=== PATIENT | female | born 1930 | race Caucasian/White ===

== ENCOUNTER → 2016-10-30 17:46 | Outpatient (CLI) | payer MEDICARE, MEDICAID ==
[2015-12-20 10:39] VITALS: BMI 27.0
[~2016-10-30 17:46] MED LIST: BAYER CHEWABLE81 MG PO; COZAAR100 MG PO; FLAGYL 500500 MG/100 PO; FLAGYL500 MG PO; GABAPENTIN100 MG PO; GEMFIBROZIL600 MG PO; GLUCOPHAGE500 MG PO; LANTUS INSULIN10 ML SC; LEVAQUIN500 MG PO; LEVOXYL50 MCG PO; Levaquin PREMIX IV; PLAVIX75 MG PO; PRAVACHOL20 MG PO; PRILOSEC20 MG PO; PROTONIX40 MG PO; SYNTHROID75 MCG PO; ZIAC 5-6.25 MG1 TAB PO
== END | disposition home or self-care (01) ==
LOC: D.MAMMO 10:00
DX: Z12.31 Encounter for screening mammogram for malignant neoplasm of breast (principal)

== ENCOUNTER 2016-11-28 07:51 | Outpatient (CLI) | payer MEDICARE, MEDICAID ==
[~2016-11-28] VITALS: Ht 157.5 cm; Wt 64.1 kg
--- NOTE | ~2016-11-28 | HEMODYNAMI ---
PATIENT:MARIA FERNANDA VYAS MEDICAL RECORD: [id number] : 34 LOCATION:[facility] ADMISSION DATE: 11/28/16 Generatedon:11/28/201611:02 Patient name: MARIA FERNANDA VYAS Patient #: [id number] SSN: : 1930 Date of study: 11/28/2016 Page: Of Hemodynamic Procedure Report Patient Data Patient Demographics Procedure consent was obtained First Name: MARIA FERNANDA Gender: Female Last Name: ASAEL : 1930 [facility] Initial: L Age: 86 year(s) Patient #: [id number] Race: Additional ID: [id number] Contact details [address]: [address] [place] [address] State: [place] City: [place] Zip code: [address] Past Medical History Allergies Allergen Reaction Date Comments Reported Codeine 11/28/2016 Other allergy 11/28/2016 Novacaine Admission Admission Data Admission Date: 11/28/2016 Admission Time: 7:51 Admit Source: Other Insurance Payor: Medicare, Medicaid Height (in.): 62 BSA: 1.68 (m2) Height (cm.): 157.48 BMI: 26.89 (kg/m2) Weight (lbs.): 147 Weight (kg.): 66.68 Lab Results Lab Result Date: 11/28/2016 Lab Result Time: 8:39 Biochemistry Name Units Result Min Max BUN mg/dl 39 --(----)-* 7 18 Creatinine mg/dl 1.5 --(----)-* 0.6 1.3 CBC Name Units Result Min Max Hemoglobin g/dl 12 *-(----)-- 13.5 17.5 Procedure Procedure Types Cath Procedure Miscellaneous Procedures Moderate Sedation up to 30 minutes Peripheral Cath Diagnostic Procedure Cath Peripheral Nkcvx-Qyujnmh-Emm-Off Peripheral vascular Intervention Stent Stent-Fem/Popw/plasty Procedure Description Procedure Date Procedure Date: 11/28/2016 Procedure Start Time: 10:39 Procedure End Time: 11:01 Procedure Staff Name Function Tom Randhawa MD Performing Physician Beth Spain RT Scrub Romi Pool RN Nurse Tay Campbell RT Monitor Levar Rogers RN Percussion Instructor Procedure Data Cath Procedure Fluoroscopy Diagnostic fluoroscopy Total fluoroscopy Time: 4.6 time: 4.6 min min Diagnostic fluoroscopy Total fluoroscopy dose: 100 dose: 100 mGy mGy Contrast Material Contrast Material Type Amount (ml) Isovue 300 81 Entry Location Entry Primary Successful Side Size Upsize 1 Upsize Entry Closure Olivarez ccessful Closure Location (Fr) (Fr) 2 (Fr) Remarks Device Remarks Femoral Right 5 Fr 6 Fr 6 Fr Exoseal artery Mid-Length Short Estimated blood loss: 10 ml Diagnostic catheters Device Type Used For End Catheter Placement Cordis Tempo 5Fr UF Procedure catheter Procedure Complications No complications Procedure Medications Medication Administration Route Dosage Oxygen NC 2 l/min Lidocaine 2% added to field 20 Heparin Flush Bag added to field 2 bags (1000units/500ml NS) 0.9% NaCl I.V. 100 ml/hr Versed I.V. 1 mg Fentanyl I.V. 50 mcg Versed I.V. 1 mg Fentanyl I.V. 50 mcg Heparin Bolus I.V. 4000 units Integrilin (Bolus I.V. 5.6 ml 2mg/ml) Fentanyl I.V. 25 mcg Plavix P.O. 600 mg Hemodynamics Rest BSA: 1.68 (m2) HGB: 12 (g/dl) O2 Consumption: Estimated: 142.55 (ml/min) O2 Cons umption indexed: Estimated:84.85 (ml/min/m) Heart Rate: 59 (bpm) Snapshots Pre Cath Intra NCS Post Cath Vital Signs Time Heart Resp SPO2 etCO2 [id number] NIBP (mmHg) Rhythm Pain Sedation Rate (ipm) (%) (mmHg) (mmHg) Status Level (bpm) 10:14:11 59 15 95 0 0 188/69(145) NSR 0 (11) 10(A) , No pain 10:18:40 59 16 96 0 0 177/76(145) NSR 0 (11) 10(A) , No pain 10:23:12 58 14 97 0 0 163/61(128) NSR 0 (11) 10(A) , No pain 10:27:38 59 15 95 0 0 139/59(107) NSR 0 (11) 10(A) , No pain 10:31:57 57 15 96 0 0 128/57(102) NSR 0 (11) 10(A) , No pain 10:36:12 59 14 96 0 0 127/56(98) NSR 0 (11) 9(A) , No pain 10:40:26 59 15 94 0 0 117/56(92) NSR 0 (11) 9(A) , No pain 10:44:39 59 14 96 0 0 126/50(97) NSR 0 (11) 9(A) , No pain 10:48:53 61 15 94 0 0 124/55(97) NSR 0 (11) 9(A) , No pain 10:53:04 59 15 98 0 0 144/61(125) NSR 0 (11) 10(A) , No pain 10:57:22 59 11 97 0 0 140/64(112) NSR 0 (11) 10(A) , No pain 11:01:32 98 0 0 No Cuff NSR 0 (11) 10(A) , No pain Medications Time Medication Route Dose Verified Delivered Reason Notes Effectiveness by by 10:17:27 Oxygen NC 2 Tom Buffie used for l/min Edis Pool RN procedure 10:17:59 Lidocaine 2% added 20ml Tom Tom for local to vial Edis Randhawa MD anesthetic field 10:18:06 Heparin Flush added 2 Tom Tom used for Bag to bags Edis Randhawa MD procedure (1000units/500ml field NS) 10:18:16 0.9% NaCl I.V. 100 Tom Buffie Per physician ml/hr Edis Pool RN 10:33:16 Versed I.V. 1 mg Tom Buffie for sedation Edis Pool RN 10:33:39 Fentanyl I.V. 50 Tom Buffie for sedation mcg Edis Pool RN 10:37:50 Versed I.V. 1 mg Tom Buffie for sedation Edis Pool RN 10:37:54 Fentanyl I.V. 50 Tom Buffie for sedation mcg Edis Pool RN 10:43:51 Heparin Bolus I.V. 4000 Tom Buffie for verifi ed units Edis Pool RN anticoagulation with dr randhawa 10:46:43 Integrilin I.V. 5.6 Tom Buffie for wasted (Bolus 2mg/ml) ml Edis Pool RN antiplatelet 4.4 ml therapy of vial 10:50:28 Fentanyl I.V. 25 Tom Llanos for sedation mcg Edis Pool RN 10:56:12 Plavix P.O. 600 Tom Llanos for mg Edis Pool RN antiplatelet therapy Procedure Log Time Note 10:01:41 Levar Rogers RN sent for patient. Start room use. 10:01:43 Time tracking: Regular hours 10:01:47 Plan of Care:Hemodynamics will remain stable., Cardiac rhythm will remain stable., Comfort level will be maintained., Respiratory function will remain adequate., Patient/ family verbilizes understanding of procedure., Procedure tolerated without complication., Recovers from procedure without complications.. 10:05:36 Patient received from Pre/Post Procedure Room to CCL 1 Alert and oriented. Tansferred to table in Supine position. 10:05:37 Warm blankets applied, and roly hugger turned on for patient comfort. 10:05:38 Correct patient and procedure confirmed by team. 10:05:39 Signed procedure consent form obtained from patient. 10:05:40 ECG and BP/O2 sat monitors applied to patient. 10:05:41 Full Disclosure recording started 10:11:49 Vital chart was started 10:11:53 Rhythm: 1st degree heart block 10:12:05 H&P Date Dictated: 11/18/2016 Within 30 days and on chart., H&P Addendum completed by physician on day of procedure. (MUST COMPLETE FOR ALL OUTPATIENTS). 10:12:17 Pre-procedure instructions explained to patient. 10:12:18 Pre-op teaching completed and patient verbalized understanding. 10:12:21 Family in waiting room. 10:12:23 Patient NPO since Midnight. 10:12:30 Patient allergic to Codeine 10:12:39 Patient allergic to Other allergyNovacaine 10:12:42 Is the patient allergic to Iodine/contrast media? No. 10:12:47 Is patient on blood thinner?No 10:12:49 Patient diabetic? No. 10:12:53 Previous problem with sedation/anesthesia? No ? 10:12:55 Snore? No 10:13:01 Sleep apnea? No 10:13:02 Deviated septum? No 10:13:03 Opens mouth fully? Yes 10:13:04 Sticks out tongue? Yes 10:13:05 Airway obstruction? No ? 10:13:07 Dentures? No ? 10:13:12 Pre procedure: right dorsailis pedis pulse 1+ Palpable, but thready & weak; easily obliterated 10:13:19 Pre procedure: left dorsailis pedis pulse 0-Absent 10:13:23 Patient pain scale 0/10 ?. 10:13:30 IV patent on arrival in left hand with 0.9% NaCl at [facility]. 10:13:38 Lab results completed and on chart. 10:13:44 Bilateral groins area was prepped with chlora-prep and draped in sterile fashion 10:13:45 Alarms reviewed by R. N. 10:13:45 Sharps counted by scrub and verified by R.N. 10:14:03 Medline Cath Pack opened to sterile field. 10:14:03 Acist Syringe opened to sterile field. 10:14:04 Terumo 5Fr [place] Sheath opened to sterile field. 10:14:05 St Jimmy 260cm J .035 wire opened to sterile field. 10:14:06 Acist Hand Control opened to sterile field. 10:14:06 Acist Manifold opened to sterile field. 10:14:08 Tegaderm 4 x 4 opened to sterile field. 10:17:27 Oxygen 2 l/min NC was given by Romi Pool RN; used for procedure; 10:17:59 Lidocaine 2% 20ml vial added to field was given by Tom Randhawa MD; for local anesthetic; 10:18:06 Heparin Flush Bag (1000units/500ml NS) 2 bags added to field was given by Tom Randhawa MD; used for procedure; 10:18:16 0.9% NaCl 100 ml/hr I.V. was given by Romi Pool RN; Per physician; 10:23:20 Lab Result : BUN 39 mg/dl 10:23:20 Lab Result : Creatinine 1.5 mg/dl 10:23:20 Lab Result : Hemoglobin 12 g/dl 10:23:30 Acist Hand Control opened to sterile field. 10:23:31 Acist Syringe opened to sterile field. 10:23:31 Bag Decanter opened to sterile field. 10:23:32 Terumo 5Fr [place] Sheath opened to sterile field. 10:23:32 St Jimmy 260cm J .035 wire opened to sterile field. 10:25:09 Baseline sample Acquired. 10::29 Patient Height : 62 inches 10:26:39 Insurance Payor : Medicare, Medicaid 10:32:09 Zero performed for pressure channel P1 10:32:29 Admit Source: Other 10:32:36 If diabetic: On Metformin? No 10::53 --------ALL STOP TIME OUT------ 10::53 Final Timeout: patient, procedure, and site verified with staff and physician. All members of the team are in agreement. 10:32:55 Bilateral groins site verified by team. 10:32:57 Physical assessment completed. ASA score P 2 - A patient with mild systemic disease as per Tom Randhawa MD. 10:33:04 Sedation plan: IV Moderate Sedation Versed, Fentanyl 10:33:16 Versed 1 mg I.V. was given by Romi Pool RN; for sedation; 10:33:39 Fentanyl 50 mcg I.V. was given by Romi Pool RN; for sedation; 10:37:41 Patient Weight : 147 lbs 10:37:50 Versed 1 mg I.V. was given by Romi Pool RN; for sedation; 10:37:54 Fentanyl 50 mcg I.V. was given by Romi Pool RN; for sedation; 10:38:58 Procedure started. 10:39:03 Local anesthetic to right femoral artery with Lidocaine 2% by Tom Randhawa MD.INITIAL ACCESS ONLY 10:40:12 A 5 Fr sheath was inserted into the Right Femoral artery 10:40:34 A Chiasma 5Fr UF catheter was advanced over the wire and used for Procedure. 10:40:37 Abdominal angiogram w/ runoff was performed. 10:40:51 Left renal angiography performed. 10:41:06 Right renal angiography performed. 10:42:22 Terumo ANGLE 260cm glide wire opened to sterile field. 10:42:23 Merit BasixCompak Inflation Kit opened to sterile field. 10:43:44 Terumo TORQUE DEVICE PLASTIC .038 opened to sterile field. 10:43:45 Terumo 6Fr [place] Destination Sheath opened to sterile field. 10:43:46 Terumo 6Fr [place] Sheath opened to sterile field. 10:43:51 Heparin Bolus 4000 units I.V. was given by Romi Pool RN; for anticoagulation; verified with dr randhawa 10:43:57 [place] Sci Choice PT Extra Support J 300cm .014 gu opened to sterile field. 10:44:11 Catheter removed. 10:44:20 Sheath upsized to a 6 Fr Mid-Length. 10:44:35 glide wire advanced around horn. 10:45:43 glide wire removed 10:45:59 choice pt extra support wire advanced. 10:46:43 Integrilin (Bolus 2mg/ml) 5.6 ml I.V. was given by Romi Pool RN; for antiplatelet therapy; wasted 4.4 ml of vial 10:47:49 Inflation number: 1 A Saber 6.0 X 200 X 150 balloon was prepped and advanced across the Mid Superficial Femoral, Left, then inflated to 11 KYALA for 0:10 (min:sec). 10:48:49 Multiple inflations made at 11 Atms. 10:49:57 Balloon removed over the wire. 10:50:28 Fentanyl 25 mcg I.V. was given by Romi Pool RN; for sedation; 10:51:35 Cordis SMART 6 X 150 X 120 stent was deployed across Mid Superficial Femoral, Left . 10:51:38 Stent catheter was removed intact over wire. 10:52:38 Cordis 6Fr Exoseal opened to sterile field. 10:52:46 Wire removed. 10:53:00 Sheath upsized to a 6 Fr Short. 10:53:14 Sheath removed intact; hemostasis achieved with Exoseal to the Right Femoral artery. 10:53:16 Procedure ended.(Physican Out) 10:56:12 Plavix 600 mg P.O. was given by Romi Pool RN; for antiplatelet therapy; 10:56:54 Fluoroscopy time 04.60 minutes. 10:56:58 Fluoroscopy dose: 100 mGy 10:56:58 Flurop Dose total: 100 10:57:03 Contrast amount:Isovue 300 81ml. 10:57:04 Sharps counted by scrub and verified by R.N. 10:57:05 Insertion/operative site no bleeding no hematoma. 10:57:08 Post-op/insertion site Right Femoral artery dressed using a 4 x 4 and Tegaderm. 10:57:14 Post right femoral artery:stable, soft, clean and dry 10:57:15 Post Procedure Pulses reassessed and unchanged 10:57:18 Post-procedure physical assessment completed. ASA score P 2 - A patient with mild systemic disease as per Tom Randhawa MD. 10:57:20 Post procedure rhythm: unchanged. 10:57:23 Estimated blood loss: 10 ml 10:57:24 Post procedure instruction explained to patient.Patient verbalizes understanding. 10:57:25 Post procedure instruction explained to patient.Patient verbalizes understanding. 10:57:25 Patient needs reinforcement of post procedure teaching. 10:57:58 Procedure type changed to Cath procedure, Miscellaneous Procedures, Moderate Sedation up to 30 minutes, Peripheral Cath Diagnostic Procedure, Cath Peripheral, Rwkki-Unxtkid-Kpq-Off, Peripheral vascular Intervention, Stent, Stent-Fem/Popw/plasty 11:01:08 Procedure and supply charges have been captured, reviewed, submitted and are correct. 11:01:11 Procedure Complication : No complications 11:01:12 Vital chart was stopped 11:01:13 See physician's report for complete and final results. 11:01:14 Report given to Pre/Post Procedure Room. 11:01:16 Patient transfered to Pre/Post Procedure Room with Stretcher. 11:01:18 Procedure ended. 11:01:18 Full Disclosure recording stopped 11:01:28 ACC-PCI Only Patient was given prescriptions, or instructed by Tom Randhawa MD to start/continue the following medications upon discharge: Plavix 11:01:30 End room use (Document Last) Intervention Summary Intervention Notes Time ActionType Lesion and Equipment Action# Pressure Duration Attributes Used 10:47:49 Inflate Mid Saber 6.0 1 11 00:10 balloon Superficial X 200 X Femoral, 150 Left balloon 10:51:35 Deploy self Mid Cordis 1 expanding Superficial SMART 6 X stent Femoral, 150 X 120 Left stent Device Usage Item Name Manufacture Quantity Catalog Number Hospital Part Current Minim al Lot# / Charge Number Stock Stock Serial# Code [facility] 1 [id number] 87780 [id number] 5 Cath Pack Health Acist Acist 2 88222 460561 360943 379732 20 [employer] Inc Terumo 5Fr Terumo 2 [id number] 670156 303362 895706 [address] Jimmy 2 990603 414492 724612 629054 30 260cm J .035 wire Acist Hand Acist 2 17493 595599 024184 293791 5 Control Medical Systems Inc Acist Acist 1 04082 020792 379917 921487 5 Manifold Medical [employer] Inc Tegaderm 4 3M 1 1626W 444899 028487 452959 5 x 4 Bag Microtek 1 2002S 172323 49684 047647 5 Decanter [employer] Inc. Cordis Cardinal 1 [id number] 840288 115656 346570 10 Tempo 5Fr Health UF catheter Terumo Terumo 1 [id number] 312930 213365 445112 5 ANGLE 260cm glide wire Merit Merit 1 AS8619 684328 300858 661578 15 BasixCompak Medical Inflation Kit Terumo [place] 1 TD01 850844 356608 880947 5 TORQUE Scientific DEVICE PLASTIC .038 Terumo 6Fr Terumo 1 RSR01 234595 40647 162236 5 [place] Destination Sheath Terumo 6Fr Terumo 1 [id number] 308848 751724 150191 40 [place] Sheath [place] Sci [place] 1 [id number] 957832 501847 950517 5 Choice PT Scientific Extra Support J 300cm .014 gu Saber 6.0 X Cardinal 1 [id number] 209627 745993 5 200 X 150 Health balloon Cordis Cardinal 1 [id number] 645426 181317 558398 0 [id number] SMART 6 X Health 150 X 120 stent Cordis 6Fr Cardinal 1 EX600 621230 863280 987871 10 [facility] Health Signature Audit [place] Stage Time Signature Unsigned Intra-Procedure 11/28/2016 Tay Campbell 11:02:46 AM RT(R) Signatures Monitor : Tay Campbell RT Signature : Date : Time : [facility] [address] [place] [address]
[~2016-11-28 07:51] MED LIST changes: -PLAVIX75 MG PO
[2016-11-28 08:22] VITALS: BP 148/53; Ht 157.5 cm; Wt 64.1 kg
[2016-11-28 08:44] LABS: BASOPHILS 0.8 % (0.0-2.0); EOSINOPHILS 4.8 % (0-7); HEMATOCRIT 36.9 % (36.0-48.0); IMMATURE GRANULOCYTES 0.2 % (0-5); LYMPHOCYTES 28.8 % (15-50); MCH 28.8 pg (26.0-34.0); MCHC 32.5 g/dL (31.0-37.0); MCV 88.5 fL (80.0-100.0); MEAN PLATELET VOLUME 10.8 fL (7.4-10.4); MONOCYTES 9.8 % (2-11); NEUTROPHILS 55.6 % (40-80); PLATELET COUNT 193 10x3/uL (130-400); RBC 4.17 10x6/uL (4.00-5.40); RDW 13.8 % (11.5-14.5); WBC 6.6 10x3/uL (4.8-10.8)
[2016-11-28 08:48] LABS: ANION GAP 14.8 mmol/L (8-16); CALCIUM 10.3 mg/dL (8.5-10.1); CARBON DIOXIDE 27.5 mmol/L (21.0-32.0); CREATININE - SERUM 1.5 mg/dL (0.6-1.3); POTASSIUM - SERUM 4.3 mmol/L (3.5-5.1)
--- NOTE | 2016-11-28 11:20 | NUR ---
1120 RESTING QUIETLY WITH VSS NO DISTRESS NOTED. 6 FR EXOSEAL R/GROIN CDI NO BLEEDING NO HEMATOMA NOTED.
[2016-11-28] MEDS ORDERED: PLAVIX75 MG PO (11:42)
--- NOTE | 2016-11-28 12:00 | NUR ---
1200 6 FR EXOSEAL R/GROIN CDI NO BLEEDING NO HEMATOMA NOTED. VSS WITH CHEST PAIN DENIED
--- NOTE | 2016-11-28 12:23 | NUR ---
6 FR EXOSEAL R/GROIN CDI NO BLEEDING NO HEMATOMA NOTED VSS WILL MONITOR
--- NOTE | 2016-12-01 10:08 | OP ---
PATIENT NAME: MARIA FERNANDA VYAS MEDICAL RECORD: [id number] :34 LOCATION:D.CAT ADMISSION DATE: SURGEON: JESUS GARCÍA MD DATE OF OPERATION: 11/28/2016 PROCEDURES: 1. Stent placement SFA, left. 2. MANUFACTURING ENGINEER ASSEMBLY SFA, left. 3. Aortofemoral runoff. 4. Abdominal aortography. INDICATION: Claudication, peripheral vascular disease, nonhealing ulcer, left leg. PROCEDURE IN DETAIL: After informed consent was obtained and after a detailed explanation of risks, benefits as well as alternative therapies, the patient elected to proceed with angiogram and angioplasty. The right femoral area was prepped and draped in normal sterile fashion. The right femoral artery was cannulated via modified Seldinger technique with placement of a 6-Urdu jztqez-xtx-etco sheath. All catheters exchanged through this sheath. FINDINGS: The abdominal aortography was performed. The catheter was pulled down for aortofemoral runoff. Abdominal aortography reveals no significant abdominal aortic disease, no renal artery stenosis. No dissection or aneurysm formation. RIGHT LEG: A. Iliac: The common internal and external iliacs have mild irregularities, but no flow-limiting stenosis. B. Femoral system: The common and deep femoral are widely patent. Superficial femoral has multiple areas of 80% and 90% stenosis. C. Popliteal and infrapopliteal vessels: The popliteal is widely patent. Anterior tibial is totally occluded, posterior tibial and peroneal give 2-vessel runoff to the foot, although diffusely diseased. LEFT LEG: A. Iliac: The common internal and external iliacs have moderate irregularities, but no flow-limiting stenosis. B. Femoral system: The common and deep femoral are widely patent. Superficial femoral has multiple areas of subtotal stenosis. C. Popliteal and infrapopliteal vessels: The popliteal is patent. Anterior tibial is totally occluded. Posterior tibial and peroneal give 3-vessel runoff to the foot, although diffusely diseased. MANUFACTURING ENGINEER ASSEMBLY STENT OF THE SUBTOTAL OCCLUSIONS OF THE LEFT SFA: The balloon used was a 6 x 200. This yielded suboptimal result with severe intimal dissection. Stenting was undertaken with a 6 x 150 SMART stent. Result was 0% residual stenosis. OVERALL IMPRESSION: Successful percutaneous transluminal angioplasty stent of the left superficial femoral artery going from 95% initial stenosis to 0% residual with pentecostal of brisk distal flow. TRANSINT:[id number] Voice Confirmation ID: [id number] DOCUMENT ID: [id number] OPERATIVE REPORT [id number] MARIA FERNANDA VYAS, JESUS RAMOS at 1008 CC: [id number] DICTATION DATE: 11/28/16 1057 MILK BOTTLER: 11/28/16 1839 DEP CLI 11/28/16 [place] [id number]
== END 2016-11-28 15:10 | disposition home or self-care (01) ==
LOC: D.CATH 07:51
PROVIDERS: Internal Medicine Interventional Cardiology
DX: I70.249 Atherosclerosis of native arteries of left leg with ulceration of unspecified site (principal); I70.212 Atherosclerosis of native arteries of extremities with intermittent claudication, left leg

== ENCOUNTER 2017-03-17 21:20 | Emergency (ER) | payer MEDICARE, MEDICAID ==
[2016-11-28 08:22] VITALS: BMI 25.8
[~2017-03-17 21:20] MED LIST changes: +PLAVIX75 MG PO
== END 2017-03-17 22:30 | disposition home or self-care (01) ==
LOC: D.ER 21:20
DX: K59.00 Constipation, unspecified (principal); I10 Essential (primary) hypertension; E83.42 Hypomagnesemia; E03.9 Hypothyroidism, unspecified

== ENCOUNTER 2017-03-25 19:17 | Inpatient (IN) | payer MEDICARE, MEDICAID ==
[~2017-03-25] VITALS: Ht 157.5 cm; Wt 55.9 kg
--- NOTE | ~2017-03-25 | OP ---
PATIENT NAME: MARIA FERNANDA VYAS MEDICAL RECORD: [id number] :34 LOCATION:D.M2 D.2106 ADMISSION DATE:03/25/17 SURGEON: JESUS GARCÍA MD OPERATION DATE: 03/30/17 PROCEDURES: 1. Stent placement superficial femoral artery right. 2. Stent placement popliteal right. 3. Percutaneous transluminal angioplasty superficial femoral artery right. 4. Percutaneous transluminal angioplasty popliteal right. 5. Unilateral extremity angiography. INDICATION: 1. Limb-threatening ischemia. 2. Nonhealing ulcer. 3. Osteomyelitis. PROCEDURE IN DETAIL: After informed consent was obtained and after detailed explanation of risks, benefits, as well as alternative therapies, the patient elected to proceed with angiogram. The left femoral area was prepped and draped in a normal sterile fashion. The left femoral artery was cannulated via modified Seldinger technique with placement of 6-Slovak sheath. All catheters exchanged through this sheath. FINDINGS: The right superficial femoral artery has an 80-90% stenosis in the proximal aspect. The popliteal has a 90+% stenosis. There is two vessel runoff to the foot through the peroneal and posterior tibial. HEAD REFRIGERATING ENGINEER STENT OF SUPERFICIAL FEMORAL ARTERY AND POPLITEAL: The balloon used was a 5.0 balloon. This yielded a suboptimal result with severe dissection in both territories. Stenting was undertaken 6 X 60 SMART stent in the popliteal, 6 X 40 SMART stent in the superficial femoral artery. The result was 0% residual stenosis. OVERALL IMPRESSION: Successful percutaneous transluminal angioplasty stent of the right lower extremity going from over 90% initial stenosis to 0% residual stenosis. JESUS GARCÍA MD CC: [id number] DICTATION DATE: 03/30/17 1400 SALES AND MARKETING REPRESENTATIVE: SELENA 03/31/17 1220 ADM IN [place] [id number] [place] [address]
--- NOTE | ~2017-03-25 | HEMODYNAMI ---
PATIENT:MARIA FERNANDA VYAS MEDICAL RECORD: [id number] : 34 [facility] [place] [id number] ADMISSION DATE: 03/25/17 Generatedon:03/30/201710:30 Patient name: MARIA FERNANDA VYAS Patient #: [id number] SSN: : [id number] Date of study: 03/30/2017 Page: Of Hemodynamic Procedure Report Patient Data Patient Demographics Procedure consent was obtained First Name: MARIA FERNANDA Gender: Female Last Name: ASAEL : 1930 [facility] Initial: L Age: 86 year(s) Patient #: [id number] Race: Additional ID: [id number] Contact details [address]: [address] [place] [address] State: [place] City: [place] Zip code: [address] Past Medical History Allergies Allergen Reaction Date Comments Reported Codeine 11/28/2016 Other allergy 11/28/2016 Novacaine Other allergy 03/30/2017 Procaine, Novocain, Codiene, TB Skin Test Admission Admission Data Admission Date: 03/25/2017 Admission Time: 19:17 Room #: D.2219 Height (in.): 62 BSA: 1.67 (m2) Height (cm.): 157.48 BMI: 26.52 (kg/m2) Weight (lbs.): 145 Weight (kg.): 65.77 Lab Results Lab Result Date: 03/30/2017 Lab Result Time: 4:05 Biochemistry Name Units Result Min Max BUN mg/dl 25 --(----)-* 7 18 Creatinine mg/dl 1.6 --(----)-* 0.6 1.3 CBC Name Units Result Min Max Hematocrit % 35.5 *-(----)-- 42 54 Hemoglobin g/dl 11.5 *-(----)-- 13.5 17.5 Procedure Procedure Types Cath Procedure Peripheral vascular Intervention Stent Stent-Fem/Popw/plasty Procedure Description Procedure Date Procedure Date: 03/30/2017 Procedure Start Time: 10:05 Procedure End Time: 10:30 Procedure Staff Name Function Tom Randhawa MD Performing Physician Beth pSain RT Scrub Trice Chu RN Nurse Tay Campbell RT Monitor Levar Rogers RN Drinking Water Technician Gagan Armstrong RT Drinking Water Technician Procedure Data Cath Procedure Fluoroscopy Diagnostic fluoroscopy Total fluoroscopy Time: 7.5 time: 7.5 min min Diagnostic fluoroscopy Total fluoroscopy dose: 73 dose: 73 mGy mGy Contrast Material Contrast Material Type Amount (ml) Isovue 300 91 Entry Location Entry Primary Successful Side Size Upsize Upsize Entry Closure Succes sful Closure Location (Fr) 1 (Fr) 2 (Fr) Remarks Device Remarks Femoral Left 6 Fr 6 Fr 6 Fr Exoseal artery Short Long Short Estimated blood loss: 10 ml Diagnostic catheters Device Type Used For End Catheter Placement Diagnostic 5Fr IMT Procedure Catheter Procedure Complications No complications Procedure Medications Medication Administration Route Dosage Oxygen NC 2 l/min Lidocaine 2% added to field 20 Heparin Flush Bag added to field 2 bags (1000units/500ml NS) 0.9% NaCl I.V. 100 ml/hr Versed I.V. 1 mg Fentanyl I.V. 50 mcg Heparin Bolus I.V. 4000 units Versed I.V. 1 mg Fentanyl I.V. 50 mcg Hemodynamics Rest BSA: 1.67 (m2) HGB: 11.5 (g/dl) O2 Consumption: Estimated: 170.21 (ml/min) O2 Co nsumption indexed: Estimated:101.92 (ml/min/m) Heart Rate: 104 (bpm) Snapshots Pre Cath Intra NCS Post Cath Vital Signs Time Heart Resp SPO2 etCO2 OD3mvnq NIBP (mmHg) Rhythm Pain Sedation Rate (ipm) (%) (mmHg) (mmHg) Status Level (bpm) 9:37:19 97 21 99 0 0 153/84(127) NSR 0 (11) 10(A) , No pain 9:41:36 97 20 98 0 0 137/73(107) NSR 0 (11) 10(A) , No pain 9:45:41 95 17 100 0 0 148/83(112) NSR 0 (11) 10(A) , No pain 9:49:57 99 19 98 0 0 127/61(89) NSR 0 (11) 10(A) , No pain 9:54:07 97 18 98 0 0 109/62(89) NSR 0 (11) 10(A) , No pain 9:58:11 97 17 99 0 0 114/60(81) NSR 0 (11) 10(A) , No pain 10:02:15 96 16 98 0 0 120/64(85) NSR 0 (11) 10(A) , No pain 10:06:20 98 15 97 0 0 118/65(93) NSR 0 (11) 9(A) , No pain 10:10:28 96 17 97 0 0 109/57(89) NSR 0 (11) 9(A) , No pain 10:14:32 96 17 98 0 0 123/61(92) NSR 0 (11) 9(A) , No pain 10:18:38 96 17 97 0 0 123/67(91) NSR 0 (11) 9(A) , No pain 10:22:46 97 17 98 0 0 123/65(89) NSR 0 (11) 9(A) , No pain 10:26:51 97 18 97 0 0 137/68(97) NSR 0 (11) 10(A) , No pain Medications Time Medication Route Dose Verified Delivered Reason Notes Ef fectiveness by by 9:49:47 Oxygen NC 2 Trice Trice used for l/min Vlad Vlad lending manager RN 9:49:58 Lidocaine 2% added 20ml Trice Trice used for to vial Vlad Vlad procedure field RN RN 9:50:08 Heparin Flush added 2 Trice Trice used for Bag to bags Vlad Vlad procedure (1000units/500ml field RN RN NS) 9:50:21 0.9% NaCl I.V. 100 Trice Trice used for ml/hr Lvad Vlad lending manager RN 10:01:51 Versed I.V. 1 mg Trice Trice for Vlad Vlad sedation RN RN 10:01:58 Fentanyl I.V. 50 Trice Trice for mcg Vlad Vlad sedation RN RN 10:05:06 Versed I.V. 1 mg Trice Trice for Vlad Vlad sedation RN RN 10:05:16 Fentanyl I.V. 50 Trice Trice for [facility] Vlad Chu sedation RN RN 10:07:27 Heparin Bolus I.V. 4000 Tom Carnes Per verified units Edis Chu physician with dr. AUBRIE randhawa Procedure Log Time Note 9:22:53 Levar Rogers RN sent for patient. Start room use. 9:22:54 Time tracking: Regular hours 9:22:59 Plan of Care:Hemodynamics will remain stable., Cardiac rhythm will remain stable., Comfort level will be maintained., Respiratory function will remain adequate., Patient/ family verbilizes understanding of procedure., Procedure tolerated without complication., Recovers from procedure without complications.. 9:28:57 Patient received from PCU to CCL 1 Alert and oriented. Tansferred to table in Supine position. 9:28:58 Warm blankets applied, and roly hugger turned on for patient comfort. 9:28:59 Correct patient and procedure confirmed by team. 9:29:00 Signed procedure consent form obtained from patient. 9:36:12 Vital chart was started 9:43:32 ECG and BP/O2 sat monitors applied to patient. 9:43:33 Baseline sample Acquired. 9:43:42 Rhythm: sinus rhythm 9:44:39 H&P Date Dictated: 03/25/2017 Within 30 days and on chart.. 9:44:40 Pre-procedure instructions explained to patient. 9:44:41 Pre-op teaching completed and patient verbalized understanding. 9:44:43 Family in patients room. 9:44:45 Patient NPO since Midnight. 9:45:12 Patient allergic to Other allergyProcaine, Novocain, Codiene, TB Skin Test 9:46:02 Is the patient allergic to Iodine/contrast media? No. 9:46:04 Is patient on blood thinner?Yes 9:46:07 ACC The patient was administered the following blood thiners within the last 24 hours: ACCAspirin, ACCPlavix 9:46:09 Patient diabetic? Yes. 9:46:10 If diabetic: On Metformin? No 9:46:16 Previous problem with sedation/anesthesia? No ? 9:46:16 Snore? Yes 9:46:19 Sleep apnea? No 9:46:20 Deviated septum? No 9:46:21 Opens mouth fully? Yes 9:46:21 Sticks out tongue? Yes 9:46:37 Airway obstruction? No ? 9:46:41 Dentures? No ? 9:46:48 Pre procedure: right dorsailis pedis pulse Doppler 9:46:52 Pre procedure: left dorsailis pedis pulse Doppler 9:46:54 Patient pain scale 0/10 ?. 9:47:02 IV patent on arrival in left hand with 0.9% NaCl at [facility]. 9:49:47 Oxygen 2 l/min NC was administered by Trice Chu RN; used for procedure; 9:49:58 Lidocaine 2% 20ml vial added to field was administered by Trice Chu RN; used for procedure; 9:50:08 Heparin Flush Bag (1000units/500ml NS) 2 bags added to field was administered by Trice Chu RN; used for procedure; 9:50:21 0.9% NaCl 100 ml/hr I.V. was administered by Trice Chu RN; used for procedure; 9:51:02 Lab Result : BUN 25 mg/dl 9:51:02 Lab Result : Creatinine 1.6 mg/dl 9:51:02 Lab Result : Hemoglobin 11.5 g/dl 9:51:02 Lab Result : Hematocrit 35.5 % 9:51:04 Lab results completed and on chart. 9:51:09 Bilateral groins area was prepped with chlora-prep and draped in sterile fashion 9:51:10 Alarms reviewed by R. N. 9:51:11 Sharps counted by scrub and verified by R.N. 9:51:15 Tegaderm 4 x 4 opened to sterile field. 9:51:16 Acist Manifold opened to sterile field. 9:51:17 Acist Hand Control opened to sterile field. 9:51:18 Acist Syringe opened to sterile field. 9:51:19 Bag Decanter opened to sterile field. 9:51:19 Medline Cath Pack opened to sterile field. 9:51:20 St Jimmy 260cm J .035 wire opened to sterile field. 9:51:38 Terumo TORQUE DEVICE PLASTIC .038 opened to sterile field. 9:51:56 Patient Weight : 145 kg 9:52:01 Patient Height : 62 cm 9:53:17 Terumo 6Fr [place] Sheath opened to sterile field. 9:53:23 Terumo 6Fr [place] Destination Sheath opened to sterile field. 9:53:42 Zero performed for pressure channel P1 9:54:29 Terumo ADVANTAGE 260CM glide wire opened to sterile field. 9:55:32 Diagnostic Cath Status : Elective 10:01:11 Physician arrived 10:01:11 --------ALL STOP TIME OUT------ 10:01:12 Final Timeout: patient, procedure, and site verified with staff and physician. All members of the team are in agreement. 10:01:19 Left groin site verified by team. 10:01:25 Physical assessment completed. ASA score P 2 - A patient with mild systemic disease as per Tom Randhawa MD. 10:01:31 Sedation plan: IV Moderate Sedation Versed, Fentanyl 10::51 Versed 1 mg I.V. was administered by Trice Chu RN; for sedation; 10::58 Fentanyl 50 mcg I.V. was administered by Trice Chu RN; for sedation; 10:05:06 Versed 1 mg I.V. was administered by Trice Chu RN; for sedation; 10:05:07 Procedure started. 10:05:07 Full Disclosure recording started 10:05:16 Fentanyl 50 mcg I.V. was administered by Trice Chu RN; for sedation; 10:05:19 Local anesthetic to left femerol artery with Lidocaine 2% by Tom Randhawa MD.INITIAL ACCESS ONLY 10:06:34 A 6 Fr Short sheath was inserted into the Left Femoral artery 10:06:40 A Diagnostic 5Fr IMT Catheter was advanced over the wire and used for Procedure. 10:07:12 IMT USED FOR AROUND THE HORN 10:07:14 Catheter removed. 10:07:27 Heparin Bolus 4000 units I.V. was administered by Trice Chu RN; Per physician; verified with dr. randhawa 10:07:30 Sheath upsized to a 6 Fr Long. 10:07:51 DESTINATION ADVANCED AROUND THE HORN 10:09:06 Oblong [employer] Choice PT Extra Support J 300cm .014 gu opened to sterile field. 10:09:25 Right leg runoff performed. 10:09:48 CHOICE PT SUPPORT wire advanced. 10:10:12 Wire advanced across lesion. 10:11:13 Procedure type changed to Cath procedure, Peripheral vascular Intervention, Stent, Stent-Fem/Popw/plasty 10:12:05 Inflation number: 1 A Saber 5.0 X 4 X 150 balloon was prepped and advanced across the Mid Popliteal, Right, then inflated to 11 KAYLA for 0:10 (min:sec). 10:12:50 Inflation number: 1 The Saber 5.0 X 4 X 150 balloon was reinflated across the Mid Superficial Femoral, Right, to 11 KAYLA for 0:10 (min:sec). 10:12:56 Balloon removed over the wire. 10:16:11 glide wire advanced 10:16:22 choice Pt wire removed 10:16:30 Wire advanced across lesion. 10:18:15 Cordis SMART 6 X 60 X 120 stent was deployed across Mid Popliteal, Right . 10:18:21 Stent catheter was removed intact over wire. 10:19:09 Cordis SMART 6 X 40 X 120 stent was deployed across Mid Superficial Femoral, Right . 10:19:57 Stent catheter was removed intact over wire. 10:20:39 Wire removed. 10:21:02 Sheath upsized to a 6 Fr Short. 10:21:08 Cordis 6Fr Exoseal opened to sterile field. 10:21:13 Sheath removed intact; hemostasis achieved with Exoseal to the Left Femoral artery. 10:21:53 Procedure ended.(Physican Out) 10:22:26 Fluoroscopy time 07.50 minutes. 10:22:30 Fluoroscopy dose: 73 mGy 10:22:30 Flurop Dose total: 73 10:22:54 Contrast amount:Isovue 300 91ml. 10:22:55 Sharps counted by scrub and verified by R.N. 10:22:57 Insertion/operative site no bleeding no hematoma. 10:23:01 Post-op/insertion site Left Femoral artery dressed using a 4 x 4 and Tegaderm. 10:23:08 Post left femerol artery:stable, soft, clean and dry 10:23:10 Post Procedure Pulses reassessed and unchanged 10:23:12 Post-procedure physical assessment completed. ASA score P 2 - A patient with mild systemic disease as per Tom Randhawa MD. 10:23:14 Post procedure rhythm: unchanged. 10:23:17 Estimated blood loss: 10 ml 10:23:40 Post procedure instruction explained to patient.Patient verbalizes understanding. 10:23:40 Patient needs reinforcement of post procedure teaching. 10:28:52 Procedure and supply charges have been captured, reviewed, submitted and are correct. 10:30:05 Procedure Complication : No complications 10:30:07 Vital chart was stopped 10:30:09 Report given to PCU. 10:30:11 See physician's report for complete and final results. 10:30:14 Patient transfered to PCU with Stretcher. 10:30:15 Procedure ended. 10:30:15 Full Disclosure recording stopped 10:30:34 End room use (Document Last) Intervention Summary Intervention Notes Time ActionType Lesion and Equipment Action# Pressure Duration Attributes Used 10:12:05 Inflate Mid Saber 5.0 1 11 00:10 balloon Popliteal, X 4 X 150 Right balloon 10:12:50 Reinflate Mid Saber 5.0 1 11 00:10 balloon Superficial X 4 X 150 Femoral, balloon Right 10:18:15 Deploy self Mid Cordis 1 expanding Popliteal, SMART 6 X stent Right 60 X 120 stent 10:19:09 Deploy self Mid Cordis 1 expanding Superficial SMART 6 X stent Femoral, 40 X 120 Right stent Device Usage Item Name Manufacture Quantity Catalog Number Hospital Part Current Minim al Lot# / Charge Number Stock Stock Serial# Code Tegaderm 4 1 [id number] 5 x 4 Acist Acist 1 74428 653463 078419 [id number] 5 Manifold Medical Systems Inc Acist Hand Acist 1 80735 977155 742618 891765 5 Control Medical Systems Inc Acist Acist 1 86534 648872 560453 939054 20 Syringe Medical Systems Inc Bag Microtek 1 2002S 009832 29444 498508 5 Decanter Medical Inc. Medline Cardinal 1 [id number] 392926 77728 138554 5 [facility] St Jimmy 1 186031 856738 928071 899580 30 260cm J .035 wire Terumo Oblong 1 TD01 940480 835447 226120 5 TORQUE Scientific DEVICE PLASTIC .038 Terumo 6Fr Terumo 1 FEU728 565842 988856 747007 40 [place] Sheath Terumo 6Fr Terumo 1 RSR01 768236 56704 943180 5 [place] Destination Sheath Terumo Terumo 1 [id number] 658230 485993 5 ADVANTAGE 260CM glide wire Diagnostic Oblong 1 [id number] 360916 787409 62097 5 5Fr IMT Scientific Catheter Oblong Sci Oblong 1 [id number] 336010 886561 109218 5 Choice PT Scientific Extra Support J 300cm .014 gu Saber 5.0 X Cardinal 1 [id number] 241100 654138 5 4 X 150 Health balloon Cordis Cardinal 1 [id number] 326627 309732 0 [id number] SMART 6 X Health 60 X 120 stent Cordis Cardinal 1 [id number] 370159 367961 0 [id number] SMART 6 X Health 40 X 120 stent Cordis 6Fr Cardinal 1 [id number] 671006 935469 476983 10 265 [facility] Signature Audit [place] Stage Time Signature Unsigned Intra-Procedure 03/30/2017 Tay Campbell 10:30:51 AM RT(R) Signatures Monitor : Tay Campbell RT Signature : Date : Time : [place] [address] [place] [address]
[2017-03-25 20:00] VITALS: BP 140/52
--- NOTE | 2017-03-25 20:00 | NUR ---
PT ARRIVED ON UNIT AT 1930 ESCORTED BY ADMISSIONS AND FAMILY MEMBER. STARTED IV IN LEFT FA USING 20 GUAGE CATHETER IN ONE STICK.
--- NOTE | 2017-03-25 20:00 | NUR ---
PT DECLINED TO HAVE PURSE LOCKED UP...STATES SHE ONLY HAS $8 IN IT.
[2017-03-25] MEDS ORDERED: LEVOXYL50 MCG PO (20:45)
[2017-03-25] MEDS ORDERED: PRAVACHOL20 MG PO (20:46)
[2017-03-25] MEDS ORDERED: FISH OIL 1,2001 CAP PO (20:46)
[2017-03-25] MEDS ORDERED: CALCIUM 600+D T1 TA1 PO (20:47)
[2017-03-25] MEDS ORDERED: CENTRUM SILVER1 EAC3 PO (20:47)
[2017-03-25] MEDS ORDERED: NIASPAN500 MG PO (20:48)
[2017-03-25] MEDS ORDERED: ULTRAM50 MG PO (20:48)
--- NOTE | 2017-03-25 20:55 | NUR ---
HOME MEDICATIONS RECONCILED AND ORDERED PER DR HOANG TO ORDER.
[2017-03-25 21:07] LABS: ALBUMIN 3.5 g/dL (3.4-5.0); ANION GAP 15.8 mmol/L (8-16); BILIRUBIN - TOTAL 0.3 mg/dL (0.2-1.3); CALCIUM 9.7 mg/dL (8.5-10.1); CARBON DIOXIDE 26.4 mmol/L (21.0-32.0); CREATININE - SERUM 1.7 mg/dL (0.6-1.3); POTASSIUM - SERUM 4.2 mmol/L (3.5-5.1); PROTEIN - SERUM 6.8 g/dL (6.4-8.2)
--- NOTE | 2017-03-25 21:30 | NUR ---
HS MEDICATIONS GIVEN. FSBS 285 THIS CHECK. GAVE SCHEDULED 30 [address] [place] PER ORDER.
[2017-03-25 22:45] VITALS: BP 140/52; BMI 26.6
--- NOTE | 2017-03-25 22:59 | NUR ---
ADMISSION ASSESSMENT AND HISTORY COMPLETE.
[2017-03-26] VITALS: BP 109/59
--- NOTE | 2017-03-26 00:43 | NUR ---
PT RESTING IN SUPINE POSITION WITH EYES CLOSED AND EASY RESPIRATIONS. SIDE RAILS UP X2 FOR SAFETY. WILL CONTINUE TO MONITOR FOR NEEDS.
[2017-03-26 04:00] VITALS: BP 136/61
[2017-03-26 05:32] LABS: BASOPHILS 0.6 % (0-2); EOSINOPHILS 6.1 % (0-7); HEMATOCRIT 34.7 % (36.0-48.0); IMMATURE GRANULOCYTES 0.3 % (0-5); LYMPHOCYTES 30.7 % (15-50); MCH 28.6 pg (26.0-34.0); MCHC 31.7 g/dL (31.0-37.0); MCV 90.4 fL (80.0-100.0); MEAN PLATELET VOLUME 9.9 fL (7.4-10.4); MONOCYTES 9.3 % (2-11); PLATELET COUNT 226 10x3/uL (130-400); RBC 3.84 10x6/uL (4.00-5.40); RDW 13.7 % (11.5-14.5); WBC 6.3 10x3/uL (4.8-10.8)
[2017-03-26 06:03] LABS: ANION GAP 14.8 mmol/L (8-16); CALCIUM 9.6 mg/dL (8.5-10.1); CARBON DIOXIDE 27.4 mmol/L (21.0-32.0); CREATININE - SERUM 1.6 mg/dL (0.6-1.3); POTASSIUM - SERUM 4.2 mmol/L (3.5-5.1)
--- NOTE | 2017-03-26 07:30 | NUR ---
RESTING QUIETLY IN BED. DENIES ANY NEEDS AT PRESENT.
[2017-03-26 08:26] VITALS: BP 140/52
--- NOTE | 2017-03-26 08:45 | NUR ---
ASSESSMENT COMPLETE. SL TO L FA PATENT. REDNESS NOTED TO R 2ND TOE. SMALL AMOUNT OF DRAINAGE NOTED UNDER R 2ND TOE. DENIES ANY NEEDS AT THIS TIME.
[2017-03-26 12:42] VITALS: Ht 157.5 cm; Wt 55.9 kg
[2017-03-26 12:46] VITALS: BP 148/54
--- NOTE | 2017-03-26 13:06 | NUR ---
SITTING UP ON SIDE OF BED. DENIES ANY NEEDS AT PRESENT.
--- NOTE | 2017-03-26 15:00 | NUR ---
VISITING WITH COMPANY. DENIES ANY NEEDS AT PRESENT.
[2017-03-26 16:11] VITALS: BP 159/57
--- NOTE | 2017-03-26 17:12 | NUR ---
OFF FLOOR TO MRI VIA .
--- NOTE | 2017-03-26 17:51 | NUR ---
RETURNED TO ROOM FROM MRI VIA WC. SITTING UP ON SIDE OF BED EATING DINNER.
--- NOTE | 2017-03-26 19:00 | NUR ---
BEDSIDE REPORT RECEIVED AND CARE OF PT ASSUMED. PT SITTING UP ON BED VISITING WITH FAMILY MEMBER. IV IN LEFT FA SALINE LOCKED. PT STATES RIGHT 2ND TOE FEELING BETTER AND LESS RED TODAY. WILL MONITOR CLOSLEY FOR NEEDS.
[2017-03-26 20:00] VITALS: BP 178/66
--- NOTE | 2017-03-26 21:05 | NUR ---
HS MEDICATIONS GIVEN TO INCLUDE TRAMADOL 50 MG PO PER PT REQUEST FOR PAIN AT LEVEL 5/10. WILL MONITOR FOR EFFECTIVENESS. SIDE RAILS UP X2 FOR SAFETY.
[2017-03-27] VITALS: BP 169/74
--- NOTE | 2017-03-27 00:48 | NUR ---
PT RESTING QUIETLY IN SUPINE POSITION WITH EYES CLOSED AND UNLABORED BREATHING. SIDE RAILS UP X2 FOR SAFETY.
[2017-03-27 04:00] VITALS: BP 154/57
[2017-03-27 05:18] LABS: BASOPHILS 0.7 % (0-2); HEMATOCRIT 35.6 % (36.0-48.0); HEMOGLOBIN 11.4 g/dL (12-16); IMMATURE GRANULOCYTES 0.3 % (0-5); LYMPHOCYTES 29.7 % (15-50); MCH 28.8 pg (26.0-34.0); MCV 89.9 fL (80.0-100.0); MEAN PLATELET VOLUME 10.4 fL (7.4-10.4); MONOCYTES 8.1 % (2-11); NEUTROPHILS 54.2 % (40-80); PLATELET COUNT 248 10x3/uL (130-400); RBC 3.96 10x6/uL (4.00-5.40); RDW 13.6 % (11.5-14.5); WBC 7.4 10x3/uL (4.8-10.8)
[2017-03-27 05:46] LABS: ANION GAP 11.8 mmol/L (8-16); CALCIUM 9.2 mg/dL (8.5-10.1); CARBON DIOXIDE 28.6 mmol/L (21.0-32.0); CREATININE - SERUM 1.8 mg/dL (0.6-1.3); VANCOMYCIN - RANDOM 8.1 ug/mL (10.0-20.0)
[2017-03-27 05:48] LABS: POTASSIUM - SERUM 3.4 mmol/L (3.5-5.1)
--- NOTE | 2017-03-27 07:30 | NUR ---
DENIES ANY NEEDS AT PRESENT.
[2017-03-27 07:59] VITALS: BP 162/70
--- NOTE | 2017-03-27 08:15 | NUR ---
ASSESSMENT COMPLETE. SL TO L FA. REDNESS NOTED TO 2ND TOE. DENIES ANY NEEDS AT PRESENT.
[2017-03-27 12:00] VITALS: BP 147/57
--- NOTE | 2017-03-27 12:00 | NUR ---
NO CHANGES NOTED AT THIS TIME.
[2017-03-27 16:12] VITALS: BP 189/73
--- NOTE | 2017-03-27 18:03 | NUR ---
DENIES ANY NEEDS AT THIS TIME. DENIES ANY COMPLAINTS OF LOOSE STOOLS THIS AM. REFUSED IMMODIUM EARLIER TODAY.
[2017-03-27 20:00] VITALS: BP 189/83
[2017-03-28] VITALS (7 sets, daily range): BP systolic 118–181; BP diastolic 64–84
[2017-03-28 05:30] LABS: BASOPHILS 0.6 % (0-2); EOSINOPHILS 4.8 % (0-7); HEMATOCRIT 38.4 % (36.0-48.0); HEMOGLOBIN 12.1 g/dL (12-16); IMMATURE GRANULOCYTES 0.2 % (0-5); LYMPHOCYTES 29.4 % (15-50); MCH 28.5 pg (26.0-34.0); MCHC 31.5 g/dL (31.0-37.0); MCV 90.4 fL (80.0-100.0); MEAN PLATELET VOLUME 10.3 fL (7.4-10.4); PLATELET COUNT 253 10x3/uL (130-400); RBC 4.25 10x6/uL (4.00-5.40); RDW 13.7 % (11.5-14.5); WBC 8.2 10x3/uL (4.8-10.8)
[2017-03-28 05:52] LABS: ANION GAP 13.6 mmol/L (8-16); CALCIUM 9.5 mg/dL (8.5-10.1); CARBON DIOXIDE 27.8 mmol/L (21.0-32.0); CREATININE - SERUM 1.4 mg/dL (0.6-1.3); POTASSIUM - SERUM 3.4 mmol/L (3.5-5.1); VANCOMYCIN - RANDOM 11.9 ug/mL (10.0-20.0)
--- NOTE | 2017-03-28 07:53 | NUR ---
SLEEPING, EASILY AROUSED TO VOICE, BED LOWEST POSITION, CALL LIGHT IN REACH, WILL CONTINUE TO MONITOR
--- NOTE | 2017-03-28 08:04 | NUR ---
SLEEPING,WITHOUT DISTRESS.CALL LIGHT IN REACH
[2017-03-29 03:54] VITALS: BP 124/57
[2017-03-29 05:36] LABS: BASOPHILS 0.9 % (0-2); EOSINOPHILS 5.8 % (0-7); HEMATOCRIT 37.8 % (36.0-48.0); HEMOGLOBIN 12.1 g/dL (12-16); IMMATURE GRANULOCYTES 0.3 % (0-5); LYMPHOCYTES 34.1 % (15-50); MCH 28.9 pg (26.0-34.0); MCV 90.2 fL (80.0-100.0); MEAN PLATELET VOLUME 10.2 fL (7.4-10.4); MONOCYTES 10.8 % (2-11); NEUTROPHILS 48.1 % (40-80); PLATELET COUNT 239 10x3/uL (130-400); RBC 4.19 10x6/uL (4.00-5.40); RDW 13.7 % (11.5-14.5)
[2017-03-29 06:07] LABS: ANION GAP 13.3 mmol/L (8-16); CALCIUM 9.7 mg/dL (8.5-10.1); CARBON DIOXIDE 28.3 mmol/L (21.0-32.0); CREATININE - SERUM 1.5 mg/dL (0.6-1.3); POTASSIUM - SERUM 3.6 mmol/L (3.5-5.1); VANCOMYCIN - RANDOM 12.1 ug/mL (10.0-20.0)
--- NOTE | 2017-03-29 07:36 | NUR ---
SLEEPING, BREATHING EVEN UNLABORED, CALL LIGHT IN REACH, WILL CONTINUE TO MONITOR
[2017-03-29 08:59] VITALS: BP 130/73
[2017-03-29 11:23] VITALS: BP 129/64
[2017-03-29 15:11] VITALS: BP 125/71
--- NOTE | 2017-03-29 19:00 | NUR ---
20G PIV STARTED IN LEFT FOREARM AND SALINE LOCKED. PIV TO RIGHT WRIST WILL BE D/C AFTER REPORT IS GIVEN. PATIENT WALKED OUT OF HER ASSIGNED ROOM AND INFORMED ME THAT HER PIV HAS BEEN BLEEDING.
[2017-03-29 20:00] VITALS: BP 160/68
[2017-03-30] VITALS: BP 152/66
[2017-03-30 04:00] VITALS: BP 142/66
[2017-03-30 05:00] LABS: BASOPHILS 0.7 % (0-2); EOSINOPHILS 4.8 % (0-7); HEMATOCRIT 35.5 % (36.0-48.0); HEMOGLOBIN 11.5 g/dL (12-16); IMMATURE GRANULOCYTES 0.1 % (0-5); LYMPHOCYTES 22.4 % (15-50); MCHC 32.4 g/dL (31.0-37.0); MCV 89.4 fL (80.0-100.0); MONOCYTES 9.6 % (2-11); NEUTROPHILS 62.4 % (40-80); PLATELET COUNT 213 10x3/uL (130-400); RBC 3.97 10x6/uL (4.00-5.40); RDW 13.5 % (11.5-14.5); WBC 7.2 10x3/uL (4.8-10.8)
[2017-03-30 05:19] LABS: ANION GAP 14.2 mmol/L (8-16); CALCIUM 9.6 mg/dL (8.5-10.1); CARBON DIOXIDE 26.3 mmol/L (21.0-32.0); CREATININE - SERUM 1.6 mg/dL (0.6-1.3); POTASSIUM - SERUM 3.5 mmol/L (3.5-5.1); VANCOMYCIN - RANDOM 14.1 ug/mL (10.0-20.0)
[2017-03-30 07:29] VITALS: BP 167/74
--- NOTE | 2017-03-30 07:30 | NUR ---
ASSESSMENT COMPLETE. SL TO L FA PATENT. REDNESS NOTED TO R 2ND TOE. NPO FOR CARDIAC CATH TODAY. COMPLAINING OF TENDERNESS TO MAL AREA AND BUTTOCKS. REDNESS NOTED TO BOTH AREAS. BUTT PASTE IN USE.
--- NOTE | 2017-03-30 09:23 | NUR ---
OFF FLOOR TO SENIOR BRANCH MANAGER VIA BED. WILL TRANSFER TO ROOM 6 AFTER PROCEDURE.
--- NOTE | 2017-03-30 10:48 | NUR ---
1045-RECEIVED VIA BED TO ROOM POST PROCEDURE. TO LAY FLAT X 4 HOURS. 02 AT 2L PER NC. LEFT GROIN WITH CDI DRESSING, OP SITE IS SOFT, NO HEMATOMA SEEN OR FELT. IV FLUIDS TO LEFT FA. PPP AND STRONG. LOG ROLLED TO SIDES TO GET EXTRA BLANKETS OUT FROM HER. SMALL AMOUNT OF STOOL SEEN TO DIAPER. MAL AREA IS SLIGHTLY RED ALONG WITH SLIGHT REDNESS SEEN TO RECTUM. WILL MONITOR.
--- NOTE | 2017-03-30 12:25 | NUR ---
NUTRITION MONITORING & EVAL CHART REVIEWED. PT TRANSFERED TO PCU S/P PROCEDURE. AHA DIET TO RESUME. WILL CONTINUE TO PROVIDE DIET, MONITOR PO INTAKE. RD FOLLOWING
[2017-03-30 12:50] VITALS: BP 143/74
[2017-03-30 16:27] VITALS: BP 157/82
--- NOTE | 2017-03-30 16:35 | NUR ---
INSTRUCTED PATIENT TO WIPING FROM FRONT TO BACK TO GET RID OFF STOOL. PATIENT IS WIPING BACK TO FRONT.
--- NOTE | 2017-03-30 19:35 | NUR ---
RECIEVED SHIFT REPORT. PT IS LYING IN BED. ALERT AND ORIENTED AND ABLE TO VERBALIZE NEEDS. IV IS PATENT AND FLUIDS ARE RUNNING PER ORDER. DRESSING TO LEFT GROIN C/D/I. PT IS AMBULATORY WITH ASSISTANCE. PT STATES PAIN IS 8/10. NO NEEDS ARE VERBALIZED AT THIS TIME. WILL CONTINUE TO MONITOR. SIDE RAILS ARE UP X 2. BED IS IN LOWEST POSITION. CALL LIGHT IS WITHIN REACH.
--- NOTE | 2017-03-30 20:27 | NUR ---
SHIFT ASSESSMENT COMPLETED. NIGHT MEDS GIVEN WITH NO PROBLEMS. PT RECIEVED 4 UNITS INSULIN PER SLIDING SCALE FOR TAJQ=656. SCHEDULED LANTUS ADMINISTERED PER ORDER. PT C/O PAIN 04/30. ADMNISTERED PRESCRIBED PRN ULTRAM PER ORDER. DENIES FURTHER NEEDS. WILL MONITOR. SIDE RAILS X 2. BED LOW. CALL LIGHT IN REACH.
[2017-03-30 23:00] VITALS: BP 175/88
[2017-03-31 01:51] VITALS: BP 152/71
--- NOTE | 2017-03-31 03:28 | NUR ---
PT RESTING IN BED WITH NO DISTRESS. RESPIRATIONS ARE EVEN AND UNLABORED. SIDE RAILS X 2. BED IS LOW. CALL LIGHT IN REACH.
[2017-03-31 05:36] VITALS: BP 143/62
--- NOTE | 2017-03-31 08:07 | NUR ---
AM ROUNDING DONE WITH ME ASSISTING PATIENT TO THE RESTROOM TO VOID. SHE IS WALKING TO THE RESTROOM THERE IS SOME BM PLOPPING ONTO THE FLOOR THAT SHE CAN NOT CONTAIN. MAL AREA IS RED. ON HEART MONITOR SHOWING SR, HR 90. LEFT FA SEEN WITH SALINE LOCK. LEFT GRAOIN SITE FROM YESTERDAY PROCEDURE IS CDI. PPP AND STRONG BILATERAL. WILL CPOC.
[2017-03-31 08:34] VITALS: BP 152/63
--- NOTE | 2017-03-31 10:17 | CN ---
PATIENT NAME:MARIA FERNANDA VYAS MEDICAL RECORD: [id number] : 34 LOCATION:D.M2 D.2106 ADMIT DATE: 03/25/17 ACCOUNT: [id number] CONSULTING PHYSICIAN: JESUS GARCÍA MD REFERRING PHYSICIAN: BRITTANI VIEIRA MD CARDIOLOGY CONSULT PROBLEM LIST: 1. Nonhealing ulcer right second toe. 2. Peripheral vascular disease. 3. Claudication. 4. Coronary artery disease. 5. Hyperlipidemia. 6. Hypertension. IMPRESSION AND PLAN: The patient presents with discoloration and ischemic changes on her right second toe. She had critical disease of the left superficial femoral artery with nonhealing ulcer on the left. We were able to stent this and revascularize her left leg in November, and she had healing of that ulcer. She does have significant blockage of the right superficial femoral artery that is amenable to transcatheter revascularization. PHYSICAL EXAMINATION: HEAD, EYES, EARS, NOSE, AND THROAT: Benign. NECK: Supple. No jugular venous distention. Carotid upstroke plus two bilaterally without bruits. LUNGS: Overall clear to auscultation and percussion. HEART: Regular. Normal S1, normal S2. No S3, no S4. No murmurs. BONES, JOINTS, EXTREMITIES: No clubbing, cyanosis, or edema. OVERALL IMPRESSION: Significant disease of the right superficial femoral artery amenable to transcatheter revascularization. Will proceed with this for limb salvage therapy and hopefully healing of that foot. JESUS GARCÍA MD at 1017 CC: [id number] DICTATION DATE: 03/29/17 1400 VINER OPERATOR: SELENA 03/30/17 1303 ADM IN [place] [id number] [place] [id number]
[2017-03-31 10:58] LABS: BASOPHILS 0.7 % (0-2); EOSINOPHILS 4.5 % (0-7); HEMATOCRIT 34.5 % (36.0-48.0); HEMOGLOBIN 10.9 g/dL (12-16); IMMATURE GRANULOCYTES 0.3 % (0-5); LYMPHOCYTES 24.1 % (15-50); MCH 28.8 pg (26.0-34.0); MCHC 31.6 g/dL (31.0-37.0); MCV 91.3 fL (80.0-100.0); MEAN PLATELET VOLUME 10.3 fL (7.4-10.4); MONOCYTES 10.8 % (2-11); NEUTROPHILS 59.6 % (40-80); PLATELET COUNT 205 10x3/uL (130-400); RBC 3.78 10x6/uL (4.00-5.40); RDW 13.9 % (11.5-14.5); WBC 7.6 10x3/uL (4.8-10.8)
[2017-03-31 11:10] LABS: ANION GAP 7.1 mmol/L (8-16); CALCIUM 8.6 mg/dL (8.5-10.1); CARBON DIOXIDE 26.4 mmol/L (21.0-32.0); CREATININE - SERUM 1.4 mg/dL (0.6-1.3); POTASSIUM - SERUM 3.5 mmol/L (3.5-5.1)
[2017-03-31 12:24] VITALS: BP 158/68
--- NOTE | 2017-03-31 15:07 | NUR ---
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 Yes 0 * How many steps to enter\\exit or inside your home? 1 0 * PCP DR RUGGIERO 0 * Pharmacy [facility] [address] 0 * Preadmission Environment Home with Family 0 * ADLs Independent 0 * Equipment Walker 0 * Other Equipment NO MEDICAL EQUIPMENT PROVIDER PREFERENCE 0 * List name and contact numbers for known caregivers / representatives who currently or will assist patient after discharge: [place] LYLE, SON, 0 * Community resources currently utilized None 0 * Please name any agencies selected above. NONE 0 * Additional services required to return to the preadmission environment? No 0 * Can the patient safely return to the preadmission environment? Yes 0 * Has this patient been hospitalized within the prior 30 days at any hospital? No 0 CM MET WITH PT IN ROOM TO DISCUSS DISCHARGE PLANNING AND NEEDS. PT REPORTS LIVING AT HOME INDEPENDENTLY AND HER ADULT SON LIVES WITH HER. PT HAS WALKER THAT SHE USES ON [employer] WITH NO MEDICAL EQUIPMENT PROVIDER PREFERENCE. PT HAS NO OUTSIDE SERVICES ASSISTING IN THE HOME. CM DISCUSSED AVAILABILITY OF HOME HEALTH, REHAB SERVICES AND MEDICAL EQUIPMENT. PT REPORTS IF THEY DO NOT ORDER HOUSECALLS, SHE MAY NEED A HOME HEALTH NURSE TO KEEP A CHECK ON HER TOE; IF THE DOCTOR ORDERS HOME HEALTH, PT WANTS TO USE [facility] SINCE THE HOSPITAL SET HER SON UP WITH IT TODAY WHEN HE WAS DISCHARGED FROM "THE OTHER SIDE." PT REPORTS SHE WANTS TO BE DISCHARGED HOME TODAY, HER SON IS HHERE TO PICK HER UP FOR DISCHARGE HOME. IMPORTANT MESSAGE FROM MEDICARE PROVIDED AND EXPLAINED. PT ASKS FOR HOUSECALLS OR HOME HEALTH WITH [facility] TO MONITOR HER TOE. CM TO ARRANGE HOME HEALTH IF SPECIFIC ORDERS FROM THE DOCTOR ARE RECEIVED. CM TO FOLLOW AND ASSIST IF NEEDED. Transformation Coach: Ki Morrell
[2017-03-31 16:33] VITALS: BP 189/80
--- NOTE | 2017-03-31 17:30 | NUR ---
B/P IS 188/81. CALL PLACED TO WENDY DARNELL FOR A PRN MEDICATION. AWAITING CALL BACK. [phone]-DARWIN TO CALL BACK WITH NEW ORDERS. THIS IS RELAYED TO THE PATIENT AND HER SON.
--- NOTE | 2017-03-31 18:27 | NUR ---
APRESOLINE 10 MG GIVEN SLOW IVP FOR B/P 188/81.
[2017-03-31 19:00] VITALS: BP 170/71
--- NOTE | 2017-03-31 22:10 | NUR ---
PT C/O OF FEET COLD, WARM BLANKETS GIVEN.
--- NOTE | 2017-03-31 22:20 | NUR ---
PT STILL C/O OF FEET COLD, AND HAS IRRITATED MOOD, IMPULSIVE BEHAVIOR. STATE NEED ONE MORE BLANKET, BLANKET GIVEN.
--- NOTE | 2017-03-31 22:40 | NUR ---
PT C/O OF FEET PAIN AT A LEVEL OF 8, STATE UNABLE GO TO SLEEP, PAIN MED GIVEN. CONTINUE MONITOR CLOSELY.
[2017-04-01] VITALS: BP 155/87
[2017-04-01 04:00] VITALS: BP 147/77
[2017-04-01 06:02] LABS: BASOPHILS 0.6 % (0-2); HEMATOCRIT 34.8 % (36.0-48.0); HEMOGLOBIN 11.3 g/dL (12-16); IMMATURE GRANULOCYTES 0.2 % (0-5); LYMPHOCYTES 24.7 % (15-50); MCHC 32.5 g/dL (31.0-37.0); MCV 89.5 fL (80.0-100.0); MEAN PLATELET VOLUME 10.3 fL (7.4-10.4); MONOCYTES 12.3 % (2-11); NEUTROPHILS 59.2 % (40-80); PLATELET COUNT 204 10x3/uL (130-400); RBC 3.89 10x6/uL (4.00-5.40); RDW 13.9 % (11.5-14.5); WBC 8.6 10x3/uL (4.8-10.8)
[2017-04-01 06:22] LABS: ANION GAP 16.7 mmol/L (8-16); CALCIUM 9.1 mg/dL (8.5-10.1); CARBON DIOXIDE 24.9 mmol/L (21.0-32.0); CREATININE - SERUM 1.3 mg/dL (0.6-1.3); POTASSIUM - SERUM 3.6 mmol/L (3.5-5.1); VANCOMYCIN - RANDOM 8.1 ug/mL (10.0-20.0)
--- NOTE | 2017-04-01 07:50 | NUR ---
AM ROUNDING- RECEIVED REPORT FROM SENIOR [employer] PROJECT MANAGER NURSE ADAMA. PT IS CURRENTLY LAYING IN BED WITH EYES OPEN RESTING. ON ROOM AIR. ON MONITOR SHOWING SR, HR 96. IV SEEN TO LEFT FOREARM THAT IS CURRENTLY SALINE LOCKED. NO NEED AT CURRENT TIME. WILL CONTINUE TO MONITOR AND CONTINUE WITH PLAN OF CARE.
[2017-04-01 08:00] VITALS: BP 109/46
--- NOTE | 2017-04-01 11:42 | NUR ---
CALLED INTO PTS ROOM FOR IV LEAKING. PTS IV TO LEFT FOREARM IS LEAKING. IV REMOVED WITH CATH TIP INTACT. COVERED SITE WITH 2X2 GUAZE PADS AND SECURED WITH TAPE. WILL ATTEMPT TO RESITE PT AFTER LUNCH.
[2017-04-01 12:00] VITALS: BP 106/49
[2017-04-01] MEDS ORDERED: PLAVIX75 MG PO (12:33)
[2017-04-01] MEDS ORDERED: DOXYCYCLINE HY100 M2 PO (12:35)
--- NOTE | 2017-04-01 14:53 | NUR ---
D/C INSTRUCTIONS EXPLAINED TO PT. D/C PAPERWORK SIGNED BY PT AND PLACED IN CHART. IV ALREADY OUT DUE TO IV LEAKING AND TAKING IV OUT EARLIER ON SHIFT. PT IS AWAITING SOMEBODY TO PICK HER UP. INFORMED PT TO LET STAFF KNOW WHEN SOMEONE GETS HERE TO PICK PT UP AND I WIILL SEND WHEELCHAIR. PT AGREES. WILL CONTINUE TO MONITOR.
--- NOTE | 2017-04-01 15:39 | NUR ---
PT D/C VIA WHEELCHAIR.
== END 2017-04-01 15:40 | disposition home or self-care (01) | DRG 629 ==
LOC: D.M2 19:17 → D.MS 19:17 → D.M2 03-30 10:43
PROVIDERS: Emergency Medicine; Internal Medicine Interventional Cardiology; Orthopaedic Surgery; ADMIT Family Medicine
PROC: 047M3DZ Dilation of Right Popliteal Artery with Intraluminal Device, Percutaneous Approach (ICD-10-PCS; 2017-03-30)
PROC: 047K3DZ Dilation of Right Femoral Artery with Intraluminal Device, Percutaneous Approach (ICD-10-PCS; principal; 2017-03-30 09:00)
DX: E11.69 Type 2 diabetes mellitus with other specified complication (principal); M86.9 Osteomyelitis, unspecified; E11.621 Type 2 diabetes mellitus with foot ulcer; L97.519 Non-pressure chronic ulcer of other part of right foot with unspecified severity; L03.031 Cellulitis of right toe; E11.65 Type 2 diabetes mellitus with hyperglycemia; N17.9 Acute kidney failure, unspecified; E03.9 Hypothyroidism, unspecified; E78.5 Hyperlipidemia, unspecified; K21.9 Gastro-esophageal reflux disease without esophagitis; I25.10 Atherosclerotic heart disease of native coronary artery without angina pectoris; I99.8 Other disorder of circulatory system

== ENCOUNTER 2017-10-14 20:57 | Emergency (ER) | payer MEDICARE, MEDICAID ==
[2017-03-26 12:42] VITALS: BMI 26.5
[~2017-10-14 20:57] MED LIST changes: +CALCIUM 600+D T1 TA1 PO; +CENTRUM SILVER1 EAC3 PO; +DOXYCYCLINE HY100 M2 PO; +FISH OIL 1,2001 CAP PO; +NIASPAN500 MG PO; +ULTRAM50 MG PO
[2017-10-14 21:42] LABS: BASOPHILS 0.1 % (0-2); EOSINOPHILS 0.2 % (0-7); HEMOGLOBIN 10.6 g/dL (12-16); IMMATURE GRANULOCYTES 0.3 % (0-5); LYMPHOCYTES 4.2 % (15-50); MCH 29.4 pg (26.0-34.0); MCHC 32.1 g/dL (31.0-37.0); MCV 91.4 fL (80.0-100.0); MEAN PLATELET VOLUME 10.8 fL (7.4-10.4); MONOCYTES 8.1 % (2-11); NEUTROPHILS 87.1 % (40-80); PLATELET COUNT 176 10x3/uL (130-400); RBC 3.61 10x6/uL (4.00-5.40); RDW 13.5 % (11.5-14.5); WBC 13.4 10x3/uL (4.8-10.8)
[2017-10-14 22:00] LABS: ALBUMIN 3.5 g/dL (3.4-5.0); ANION GAP 15.6 mmol/L (8-16); BILIRUBIN - TOTAL 0.46 mg/dL (0.2-1.3); CALCIUM 8.3 mg/dL (8.5-10.1); CARBON DIOXIDE 25.8 mmol/L (21.0-32.0); CREATININE - SERUM 2.7 mg/dL (0.6-1.3); POTASSIUM - SERUM 4.4 mmol/L (3.5-5.1); PROTEIN - SERUM 7.2 g/dL (6.4-8.2)
[2017-10-14 22:18] LABS: MAGNESIUM - SERUM 1.8 mg/dL (1.8-2.4)
== END 2017-10-14 23:41 | disposition home or self-care (01) ==
LOC: D.ER 20:57
PROVIDERS: Emergency Medicine
DX: E11.65 Type 2 diabetes mellitus with hyperglycemia (principal); N17.9 Acute kidney failure, unspecified; E86.0 Dehydration; D64.9 Anemia, unspecified; I10 Essential (primary) hypertension; E03.9 Hypothyroidism, unspecified